=== PATIENT | female | born 1960 | race Two or more races ===

== ENCOUNTER 2017-09-04 22:45 | Emergency (ER) | payer OTHER ==
[~2017-09-04] VITALS: Ht 165.1 cm; Wt 58.5 kg
[2017-09-04] MEDS ORDERED: LEVOTHYROXINE112 MCG ORAL (22:52)
[2017-09-04 23:04] VITALS: BP 135/69
--- NOTE | 2017-09-04 23:08 | Emergency Room Report ---
History of Present Illness General Chief Complaint: Upper Extremity Injury Source: Patient Present Illness HPI 56-year-old female, slipped and fell, landed on her outstretched left hand, now complaining of left sided wrist pain, worse with movement. No head trauma or LOC. Took 400 mg of ibuprofen prior to arrival Allergies: Coded Allergies: No Known Allergies (Unverified , 09/04/17) Patient History Past Medical History: see triage record Past Surgical History: none Pertinent Family History: none Now: No : 1 Para: 1 Reviewed Nursing Documentation: PMH: Agreed; PSxH: Agreed Nursing Documentation-PMH Past Medical History: No History, Except For Review of Systems All Other Systems: negative except mentioned in HPI Physical Exam Vital Signs Date Time Temp Pulse Resp B/P (MAP) Pulse Ox O2 Delivery O2 Flow Rate FiO2 09/04/17 22:48 97.7 77 16 135/69 99 Room Air 97.7 Sp02 EP Interpretation: reviewed, normal General Appearance: alert, GCS 15, non-toxic, mild distress Head: normocephalic, atraumatic Eyes: bilateral eye normal inspection, bilateral eye PERRL, bilateral eye EOMI ENT: normal ENT inspection, normal pharynx, normal voice, moist mucus membranes Neck: normal inspection, full range of motion, supple Respiratory: normal inspection, lungs clear, normal breath sounds, no respiratory distress, no retraction, no wheezing, speaking full sentences, chest symmetrical Cardiovascular #1: normal inspection, regular rate, rhythm, no edema, normal capillary refill Cardiovascular #2: 2+ radial (R), 2+ radial (L) Gastrointestinal: normal inspection, non tender, soft, non-distended, no guarding Musculoskeletal: other - Left wrist with some mild edema, tender palpation radial aspect, limited range of motion of wrist secondary to pain, no snuffbox tenderness, medial ulnar and radial nerve are intact Neurologic: normal inspection, alert, oriented x3, responsive, motor strength/ tone normal, sensory intact, normal gait, speech normal Psychiatric: normal inspection, judgement/insight normal, memory normal Skin: normal inspection, normal color, no rash, warm/dry, well hydrated, normal turgor Procedures Splinting Splinting : Consent: Verbal Location: [facility] Hand-Made Type: plaster Splint: volar Pre-Proc Neuro Vasc Exam: normal Post-Proc Neuro Vasc Exam: normal Patient Tolerated: Well Complications: None Medical Decision Making Diagnostic Impression: Primary Impression: Distal radius fracture, left ER Course 56-year-old female with left wrist pain after fall DDX: Sprain/strain vs. fracture Plan: XR ER course: +distal radius fx volar splint applied, before and after neurovascularly intact. Disposition: Patient is to be discharged home Patient instructed to keep splint on at all times, and to follow up with orthopedic surgery in 1 week. Patient educated to rest, ice, and elevate extremity and to avoid vigorous activity. Strict precautions discussed with patient on when to return to the emergency room including increased redness or swelling joints, increased pain/swelling of extremity, fever or chills, which could indicate severe illness. Please note that this Emergency Department Report was dictated using [employer] filters inspector technology software, occasionally this can lead to erroneous entry secondary to interpretation by the dictation equipment. Xray ordered: Left wrist 3 view Indication: Pain EP Interpretation: Yes Interpretation: nondisplaced distal radius fx Impression: nondisplaced distal radius fx Electronically signed by Rebeca Mcclure MD Xray: Left hand 3 view Indication: Pain EP Interpretation: Yes Interpretation:n ondisplaced distal radius fx Impression: nondisplaced distal radius fx Electronically signed by Rebeca Mcclure MD Last Vital Signs Date Time Temp Pulse Resp B/P (MAP) Pulse Ox O2 Delivery O2 Flow Rate FiO2 09/04/17 22:48 97.7 77 16 135/69 99 Room Air 97.7 Disposition: HOME, SELF-CARE Condition: Improved Rebeca Mcclure M.D. Sep 04, 2017 23:08
[2017-09-04 23:29] VITALS: BP 135/69
--- NOTE | 2017-09-05 12:06 | Diagnostic Imaging Report ---
Indication: Pain status post injury Technique: XRAY Hand Complete L Comparison: None Findings: Subtle possible nondisplaced fracture of the distal radius better seen on dedicated wrist radiographs. No additional acute fracture identified. There is mild degenerative change at the basal joint. No radiopaque foreign body seen. Impression: Question nondisplaced fracture of the distal radius. Additional fracture identified.
--- NOTE | 2017-09-05 12:09 | Diagnostic Imaging Report ---
Indication: Status post fall Technique: XRAY Wrist Complete L Comparison: None Findings: Subtle nondisplaced fracture of the distal radius. Fracture line may extend to the articular surface. There is overlying soft tissue swelling. Anatomic alignment is preserved . No radiopaque foreign body seen. IMPRESSION: Subtle nondisplaced fracture of the distal radius. This corresponds with the preliminary interpretation of the treating ER clinician, as documented in the electronic medical record.
== END 2017-09-04 23:29 | disposition home or self-care (01) ==
LOC: EMR 23:08
DX: S52.502A Unspecified fracture of the lower end of left radius, initial encounter for closed fracture (principal); W01.0XXA Fall on same level from slipping, tripping and stumbling without subsequent striking against object, initial encounter; Y92.89 Other specified places as the place of occurrence of the external cause; Y99.0 Civilian activity done for income or pay
CPT/HCPCS: 29125; 99283